=== PATIENT | female | born 1965 | race Two or more races ===

== ENCOUNTER → 2016-12-17 | Outpatient (CLI) | payer OTHER ==
--- NOTE | ~2016-12-17 | US98 ---
[facility] A Service of [facility] & [facility] RADIOLOGY TEXT RESULTS PATIENT: OSMANY SCOTT LOCATION: [facility] : 67 UNIT #: [id number] AGE: [address]: Grisel Moss MD SEX: F ORDER DR: [id number] [facility] [address]. [place], [place] [address] [id number] O MR#: [id number] Acc #: [id number] NAME: OSMANY SCOTT : 1965 SEX: F STUDY DATE/TIME: 12/17/2016 11:57 UNIT: [facility] ROOM: STUDY DESCRIPTION: US Pelvic Non-OB Complete Attending Physician: Grisel Moss M.D. Ordering Physician: Grisel Moss M.D. Primary Care Physician: Grisel Moss M.D. MEDICAL IMAGING REPORT This report is preliminary unless electronic signature is present EXAM Pelvic ultrasound 12/17/2016 HISTORY Flank pain for 2 weeks. Previous ultrasound 03/15/2014. The patient has known fibroids in the uterus. COMPARISON STUDIES 03/15/2014 FINDINGS The study was done with transabdominal and transvaginal imaging. The uterus is about 9.7 cm in length and 3.9 cm in AP dimension. The endometrial tissue appears to be 3 mm in thickness. The uterus is 4.8 cm in width. The right ovary is 2.5 cm in diameter and contains and contains a 2 cm cyst. In the left adnexa there is a large complex septated abnormality that measures up to 7.5 cm in diameter. Some of the septa have blood flow seen within them and there is a separate 2 cm cyst in the left ovary. These abnormalities were not present in 2014. IMPRESSION 1. Large septated cystic lesion in the left ovary, which has developed since 2013. Blood flow is seen in some of the septa. This will need additional followup or work-up in a patient this age with lesion this size. There are also simple appearing cysts in each ovary as well measuring about 2 cm in size. MRI of the pelvis and/or [employer] consultation is recommended. 2. The uterus is normal except for small fibroid measuring about 10 mm in diameter, which was not mentioned above in the report. Dictated by... Abdulaziz Tena M.D. [facility] A Service of [facility] & [facility] RADIOLOGY TEXT RESULTS PATIENT: OSMANY SCOTT LOCATION: [facility] #: [id number] : 67 UNIT #: [id number] AGE: [address]: Grisel Moss MD SEX: F ORDER DR: THIS IS AN ELECTRONICALLY VERIFIED REPORT Abdulaziz Tena M.D. at 12/17/2016 3:57 PM Hemant TD: 12/17/2016 15:02 JOB #: [id number] MEDICAL IMAGING REPORT COPY
--- NOTE | ~2016-12-17 | MY11 ---
[facility] A Service of [facility] RADIOLOGY TEXT RESULTS PATIENT: OSMANY SCOTT LOCATION: [facility] : 67 UNIT #: [id number] AGE: [address]: Grisel Moss MD SEX: F ORDER DR: [id number] [place] [id number] [facility]. [place], [place] [address] [id number] O MR#: [id number] Acc #: [id number] NAME: OSMANY SCOTT : 1965 SEX: F STUDY DATE/TIME: 12/17/2016 12:37 UNIT: [facility] ROOM: STUDY DESCRIPTION: MY Mammogram Screening Dig Gadiel Attending Physician: Grisel Moss M.D. Ordering Physician: Grisel Moss M.D. Primary Care Physician: Grisel Moss M.D. MEDICAL IMAGING REPORT This report is preliminary unless electronic signature is present EXAM Bilateral digital screening mammogram with CAD 12/17/2016 INDICATIONS Routine screening. No reported problems and no personal or family history of breast cancer. No surgeries. TECHNIQUE CC and MLO views of breast were obtained and reviewed with a FDA-approved CAD device. COMPARISON 03/15/2014. FINDINGS Breast parenchyma is composed of scattered fibroglandular densities. The pattern is unchanged. There is no new dominant nodule, mass or suspicious clustered microcalcifications. IMPRESSION Negative screening mammogram, 1 year followup recommended. BIRADS: 1 Negative. Patients over the age of 40 are entered into a reminder system with target due date for the next mammogram. A result letter will also be sent to the patient. Dictated by... [facility] A Service of [facility] RADIOLOGY TEXT RESULTS PATIENT: OSMANY SCOTT LOCATION: [facility] : 67 UNIT #: [id number] AGE: [address]: Grisel Moss MD SEX: F ORDER DR: Vik Monique M.D. THIS IS AN ELECTRONICALLY VERIFIED REPORT Vik Monique M.D. at 12/17/2016 5:01 PM THOR/magdaleno TD: 12/17/2016 15:18 JOB #: [id number] MEDICAL IMAGING REPORT COPY
== END | disposition home or self-care (01) ==
LOC: CWCC 11:34
DX: Z12.31 Encounter for screening mammogram for malignant neoplasm of breast (principal); D25.9 Leiomyoma of uterus, unspecified; N83.202 Unspecified ovarian cyst, left side; N83.292 Other ovarian cyst, left side
CPT/HCPCS: 76830; 76856; G0202

== ENCOUNTER → 2017-07-11 | Outpatient (CLI) | payer OTHER ==
--- NOTE | ~2017-07-11 | MR151 ---
[facility] A Service of [facility] & [facility] RADIOLOGY TEXT RESULTS PATIENT: OSMANY SCOTT [facility] : 67 UNIT #: [id number] AGE: [address]: Grisel Moss MD SEX: F ORDER DR: [id number] [facility] [address] [place], [place] [address] [id number] O MR#: [id number] Acc #: [id number] NAME: OSMANY SCOTT : 1965 SEX: F STUDY DATE/TIME: 07/11/2017 8:30 UNIT: [facility] ROOM: STUDY DESCRIPTION: MR Pelvis WWo Contrast Attending Physician: Grisel Moss M.D. Referring Physician: Grisel Moss M.D. Ordering Physician: Grisel Moss M.D. Primary Care Physician: Grisel Moss M.D. MRI CENTER REPORT This report is preliminary unless electronic signature is present. EXAM MRI pelvis with and without contrast INDICATION Pelvic pain for the past year. Further characterization of a right adnexal cyst seen on ultrasound. PROCEDURE Multiplanar, multisequence MR imaging of the pelvis prior to and following 14 mL of MultiHance. COMPARISON Pelvic ultrasound 12/17/2016. FINDINGS PELVIS WITHOUT CONTRAST: Uterus is anteverted. There are 2 small fibroids in the uterus, 1 at the fundus measures 1 cm and 1 in the posterior lower uterine segment measures 1.7 cm. There is no free pelvic fluid. The bladder has normal signal. The bowel loops are nondilated. There are bilateral adnexal cysts. The largest is in the right adnexa and positioned in the central pelvis. It measures 8.5 cm and has several thin septations. No appreciable nodular component. The left ovary contains a 2.5 cm simple cyst. PELVIS WITH CONTRAST: The right adnexal dominant cyst does have thin internal enhancing septations but no enhancing nodular component. No abnormal enhancement is seen elsewhere in the pelvis. IMPRESSION 1. Dominant cyst from the right ovary positioned in the central pelvis measures 8.5 cm and has several thin internal enhancing septations. No enhancing nodular component. The multiple thin septations is suggestive [facility] A Service of [facility] & [facility] RADIOLOGY TEXT RESULTS PATIENT: OSMANY SCOTT LOCATION: [facility] : 67 UNIT #: [id number] AGE: [address]: Grisel Moss MD SEX: F ORDER DR: of a benign, ovarian neoplasm. This appearance could also be seen in the setting of a complex physiologic cyst but given the neoplastic potential recommend surgical consultation. If that is not pursued, recommend continued attention on followup. 2. Small fibroids in the ovaries and a few smaller benign simple cysts in both ovaries. Dictated by... Kuldeep Grissom M.D. THIS IS AN ELECTRONICALLY VERIFIED REPORT Kuldeep Grissom M.D. at 07/13/2017 8:05 AM YUAN/elis TD: 07/12/2017 14:20 JOB #: [id number] MRI CENTER REPORT Page 1 of 1 COPY
== END | disposition home or self-care (01) ==
LOC: CMRI 06-17 17:00
DX: N83.201 Unspecified ovarian cyst, right side (principal); R10.9 Unspecified abdominal pain; N83.202 Unspecified ovarian cyst, left side; N83.8 Other noninflammatory disorders of ovary, fallopian tube and broad ligament
CPT/HCPCS: 72197; A9577